=== PATIENT | female | born 1985 | race Hispanic/Latino ===

== ENCOUNTER 2020-07-18 11:49 | Emergency (ER) | payer SELFPAY ==
[2020-07-18] VITALS (16 sets, daily range): BP systolic 98–132; BP diastolic 54–80; PULSE 65–85; RESP 12–20; TEMP 36.9; O2SAT 97–100; BMI 28.0
--- NOTE | 2020-07-18 12:09 | DI.RAD.S_ITS ---
PROCEDURE: XR CHEST 1V INDICATIONS: chest pain TECHNIQUE: One view of the chest was acquired. COMPARISON: None. FINDINGS: Surgical changes and devices: None. Lungs and pleura: Lungs are clear. No pleural effusions or pneumothorax. Mediastinum: Mediastinal contours appear normal. Heart size is normal. Bones and chest wall: No suspicious bony lesions. Overlying soft tissues appear unremarkable. IMPRESSION: Normal for age, source of current chest pain symptoms is not seen. Dictated by: Jose Rafael Parham M.D. on 07/18/2020 at 12:54 Approved by: Jose Rafael Parham M.D. on 07/18/2020 at 12:54
[2020-07-18 12:21] LABS: Add Manual Diff / Slide Review NO; Basophils Absolute Auto 100 /uL (0-100); Basophils Percent Auto 0.7 % (0-2); Eosinophils Absolute Auto 100 /uL (0-450); Eosinophils Percent Auto 0.9 % (2-4); Hematocrit 40.5 % (36-46); Hemoglobin 13.5 g/dL (12.0-16.0); Lymphocytes Absolute Auto 2000 /uL (1100-4500); Lymphocytes Percent Auto 24.5 % (25-40); Mean Corpuscular HGB Conc 33.3 % (30-36); Mean Corpuscular Hemoglobin 28.1 PG (26-34); Mean Corpuscular Volume 84.4 fL (80-100); Monocytes Absolute Auto 500 /uL (0-900); Monocytes Percent Auto 5.7 % (3-14); Neutrophils Absolute Auto 5600 /uL (1500-7000); Neutrophils Percent Auto 68.2 % (50-75); Platelet Count 248 X10^3/uL (150-400); Red Blood Cell Count 4.81 X10^6/uL (4.0-5.2); Red Cell Distribution Width 13.5 % (11.6-14.8); White Blood Cell Count 8.2 X10^3/uL (4.5-11.0)
[2020-07-18 12:28] LABS: INR 1.1 (0.9-1.3); Prothrombin Time 12.1 SECONDS (10.1-12.7)
[2020-07-18 12:30] LABS: PTT Partial Thromboplastin Tim 34 SECONDS (26.4-36.2)
[2020-07-18 12:33] LABS: Alanine Aminotransferase 58 IU/L (<35); Albumin 4.7 g/dL (3.5-5.0); Albumin Globulin Ratio 1.4 (1.0-2.8); Alkaline Phosphatase 83 U/L (38-126); Aspartate Aminotransferase 47 IU/L (14-36); BUN Creatinine Ratio 32.4 (6-22); Bilirubin Total 0.4 mg/dL (0.2-1.3); Blood Urea Nitrogen 12 mg/dL (7-17); Calcium 9.5 mg/dL (8.4-10.2); Carbon Dioxide 24 mmol/L (22-32); Chloride 105 mmol/L (98-107); Creatine Kinase 59 U/L (30-135); Estimated Glomerular Filt Rate > 60.0 mL/min (>60); Globulin 3.3 g/dL (1.7-4.1); Glucose 97 mg/dL (70-100); HEMOLYSIS < 15 (0-50); Lipase 42 U/L (23-300); Potassium 3.9 mmol/L (3.4-5.1); Sodium 138 mmol/L (137-145)
[2020-07-18 12:57] LABS: Troponin I < 0.012 ng/mL (0.01-0.034)
--- NOTE | 2020-07-18 14:18 | ED_ITS ---
HPI - Chest Pain General Chief Complaint: Chest Pain Stated Complaint: Chest pain Time Seen by Provider: 07/18/20 14:18 Source: patient Mode of arrival: Ambulatory Limitations: no limitations History of Present Illness HPI narrative: Otherwise healthy 35-year-old woman presents today complaining of upper back pain, difficulty breathing feeling like she has to open windows to breathe comfortably and at night will get a knot in her throat that makes it more difficult to breathe. This has been going on for the last 2 years however last night apparently seemed to be a bit worse. She does not have a primary care physician has not seen of a physician at all recently. Has no specific diagnosis of asthma or other respiratory issues. She complains that she has to sleep on her stomach because it makes breathing easier for her. Her last menstrual cycle was June 03 that she has an implantable control option currently. Related Data Allergies Allergy/AdvReac Type Severity Reaction Status Date / Time No Known Drug Allergies Allergy Verified 07/18/20 12:00 Review of Systems Review of Systems ROS Unobtainable: All systems reviewed & are unremarkable except as noted in HPI and below Patient History Social History Smoking Status: Unknown if ever smoked Smoking Status: Unknown if ever smoked alcohol intake frequency: holidays/special occasions only Substance Use Type: does not use Exam Narrative Exam Narrative: General: Healthy appearing, in no acute distress. Well- nourished well-developed HEENT: Moist mucous membranes, normal sclera with reactive pupils, Respiratory: Lungs are clear to auscultation, no wheezing no rales no rhonchi. Full and symmetrical air movement Cardiac: Regular rate and rhythm no murmurs no bruits Abdomen: Soft, nontender, good bowel tones, no flank pain Skin: Warm and dry, no rashes Neurologic: Grossly neurologically intact with no obvious asymmetries or abnormalities Extremities: No trauma, well perfused Psych: Cooperative, appropriate insight and affect Initial Vital Signs Initial Vital Signs: Vital Signs Temperature 98.5 F 07/18/20 12:00 Pulse Rate 85 07/18/20 12:00 Respiratory Rate 14 07/18/20 12:00 Blood Pressure 132/80 07/18/20 12:00 Pulse Oximetry 100 07/18/20 12:00 Course Orders Ordered: ED Orders 07/18/20 12:09 XR chest 1V Stat EKG-12 Lead Stat 07/18/20 12:12 Complete Blood Count AUTO DIFF Stat Comprehensive Metabolic Panel Stat Lipase Stat Partial Thromboplastin Time Stat Prothrombin Time INR Stat Troponin & CK Cardiac Panel Stat Discontinued Medications Albuterol (Albuterol Hfa Mdi 60 Puff/8 Gm Inhaler) 2 puff INH NOW ONE Stop: 07/18/20 15:33 Last Admin: 07/18/20 15:50 Dose: 2 puff Documented by: PORFIRIO Al Hydrox/Mg Hydrox/Simethicone 20 ml/ Lidocaine HCl 15 ml 0 ml PO NOW ONE Stop: 07/18/20 17:32 Last Admin: 07/18/20 17:41 Dose: 35 ml Documented by: PORFIRIO Vital Signs Vital signs: Vital Signs - 8 hr 07/18/20 12:00 07/18/20 12:25 07/18/20 12:30 Temperature 98.5 F Pulse Rate 85 75 76 Respiratory Rate 14 16 Blood Pressure 132/80 Pulse Oximetry 100 100 99 07/18/20 13:00 07/18/20 13:30 07/18/20 14:00 Temperature Pulse Rate 70 66 65 Respiratory Rate 14 14 14 Blood Pressure Pulse Oximetry 100 100 99 07/18/20 14:22 07/18/20 14:30 07/18/20 15:00 Temperature Pulse Rate 71 74 79 Respiratory Rate 12 15 20 Blood Pressure 104/57 L 105/58 L 112/65 Pulse Oximetry 99 99 99 07/18/20 15:30 07/18/20 16:00 07/18/20 16:30 Temperature Pulse Rate 71 78 72 Respiratory Rate 16 20 14 Blood Pressure 101/64 112/77 Pulse Oximetry 99 98 98 07/18/20 16:31 07/18/20 17:00 07/18/20 17:30 Temperature Pulse Rate 74 82 77 Respiratory Rate 16 18 17 Blood Pressure 107/54 L 120/74 Pulse Oximetry 97 98 99 07/18/20 18:00 Temperature Pulse Rate 73 Respiratory Rate 15 Blood Pressure 98/56 L Pulse Oximetry 98 MDM - Chest Pain Medical Records Data Attestation: I reviewed the patient's medical records. Lab Data Attestation: I reviewed the patient's lab results. Result diagrams: 07/18/20 12:12 07/18/20 12:12 Labs: Lab Results 07/18/20 07/18/20 07/18/20 Range/Units 12:12 12:12 12:12 WBC 8.2 (4.5-11.0) X10^3/uL RBC 4.81 (4.0-5.2) X10^6/uL Hgb 13.5 (12.0-16.0) g/dL Hct 40.5 (36-46) % MCV 84.4 (80-100) fL MCH 28.1 (26-34) PG MCHC 33.3 (30-36) % RDW 13.5 (11.6-14.8) % Plt Count 248 (150-400) X10^3/uL Neut % (Auto) 68.2 (50-75) % Lymph % (Auto) 24.5 L (25-40) % Gregory % (Auto) 5.7 (3-14) % Eos % (Auto) 0.9 L (2-4) % Baso % (Auto) 0.7 (0-2) % Neut # (Auto) 5600 (5193-3412) /uL Lymph # (Auto) 2000 (0894-0083) /uL Gregory # (Auto) 500 (0-900) /uL Eos # (Auto) 100 (0-450) /uL Baso # (Auto) 100 (0-100) /uL PT 12.1 (10.1-12.7) SECONDS INR 1.1 (0.9-1.3) APTT 34 (26.4-36.2) SECONDS Sodium 138 (137-145) mmol/L Potassium 3.9 (3.4-5.1) mmol/L Chloride 105 (98-107) mmol/L Carbon Dioxide 24 (22-32) mmol/L BUN 12 (7-17) mg/dL Creatinine 0.37 L (0.52-1.04) mg/dL Estimated GFR > 60.0 (>60) mL/min BUN/Creatinine Ratio 32.4 H (6-22) Glucose 97 (70-100) mg/dL Calcium 9.5 (8.4-10.2) mg/dL Total Bilirubin 0.4 (0.2-1.3) mg/dL AST 47 H (14-36) IU/L ALT 58 H (<35) IU/L Alkaline Phosphatase 83 (38-126) U/L Total Creatine Kinase 59 (30-135) U/L CK-MB (CK-2) TNP CK-MB (CK-2) Rel Index TNP Troponin I < 0.012 (0.01-0.034) ng/mL Total Protein 8.0 (6.3-8.2) g/dL Albumin 4.7 (3.5-5.0) g/dL Globulin 3.3 (1.7-4.1) g/dL Albumin/Globulin Ratio 1.4 (1.0-2.8) Lipase 42 (23-300) U/L Imaging Data Chest x-ray: Radiologist's Impression: FINDINGS: Surgical changes and devices: None. Lungs and pleura: Lungs are clear. No pleural effusions or pneumothorax. Mediastinum: Mediastinal contours appear normal. Heart size is normal. Bones and chest wall: No suspicious bony lesions. Overlying soft tissues appear unremarkable. IMPRESSION: Normal for age, source of current chest pain symptoms is not seen. Dictated by: Jose Rafael Parham M.D. on 07/18/2020 at 12:54 ECG Data Attestation: I personally reviewed and interpreted this ECG as follows: Interpretation: Sinus rhythm at a rate of 71 Normal axis, normal intervals No acute ischemia MDM Narrative Medical decision making narrative: 35-year-old woman with 2 years of upper back and chest pain with a sense of tightness in her throat no other specific complaints. Cardiac workup is entirely unremarkable. She is given 2 puffs of albuterol as well as a GI cocktail. She felt that the albuterol helped her symptoms more than the GI cocktail. At this point I do not suspect acute coronary syndrome, significant pulmonary pathology or infection or other life- threatening etiology. I suspect that she has mild asthma that may even be ref lux related asthma. Will send her home with an albuterol MDI with spacer with instructions to use 2 puffs at night and whenever she is feeling tightness or this upper chest pain. Will also recommend that she follow up with primary care physician so that if her symptoms are not improving she can continue working on finding a more complete diagnosis. At this point she is safe for home discharge Discharge Plan Departure Patient Disposition: Home Clinical Impression: Atypical chest pain Instructions: DI for Reactive Airway Disease-Adult Activity Restrictions/Additional Instructions: Thank you for coming in today Your blood work was normal Your chest x-ray was normal Your EKG was normal You probably have mild asthma. Please use 2 puffs of the albuterol with a spacer every night before bed You need to establish care with a primary care doctor if the albuterol does not make you feel better you need to follow-up with the primary care doctor Keiry por venir hoy Tu an?lisis de susan fue normal Llanos radiograf?a de t?rax fue normal Tu electrocardiograma fue normal Probablemente tenga asma leve. Utilice 2 inhalaciones de albuterol con un espaciador todas las noches antes de acostarse. Debe establecer atenci?n con un m?dico de atenci?n primaria si el albuterol no lo hace sentir mejor, debe realizar un seguimiento con el m?dico de atenci?n primaria Referrals: Miscellaneous,Doctor, MD [Primary Care Provider] -
--- NOTE | 2020-07-18 15:02 | PC.NURSE ---
assessed pt using the collector of port line. No questions from the pt at this time. call zhao attached to the bed. pt's daughter at bedside
[2020-07-18] MEDS: ALBUTEROL HFA MDI 60 PUFF/8 GM INHALER INH (15:50)
[2020-07-18] MEDS: MAG HYDROX/ALUMINUM/SIMETH SUS 20 ML, LIDOCAINE VISCOUS 2% 15 ML PO (17:41)
== END 2020-07-18 18:42 | disposition home or self-care (01) ==
PROVIDERS: Emergency Provider Emergency Medicine
DX: J45.909 Unspecified asthma, uncomplicated (principal); R07.89 Other chest pain; M54.9 Dorsalgia, unspecified
CPT/HCPCS: 36415; 71045; 80053; 82550; 83690; 84484; 85025; 85610; 85730; 93005; 93010; 99284; A9270